=== PATIENT | male | born 1975 | race Caucasian/White ===

== ENCOUNTER → 2022-01-18 | Outpatient (CLI) | payer BC ==
[2022-01-18 11:05] LABS: Basophils # (auto) 0.1 10 ^3/uL (0-0.2); Basophils % (auto) 0.7 % (0.0-2.0); Eosinophils # (auto) 0.1 10 ^3/uL (0-0.8); Eosinophils % (auto) 1.9 % (0.0-7.0); Hematocrit 49.3 % (41.0-53.0); Hemoglobin 16.1 g/dL (13.5-17.5); Lymphocytes # (auto) 1.8 10 ^3/uL (0.4-5.4); Lymphocytes % (auto) 24.3 % (10.0-50.0); Mean Corpuscular Hemoglobin 29.1 pg (28.0-32.0); Mean Corpuscular Hgb Conc. 32.8 g/dL (32.0-36.0); Mean Corpuscular Volume 88.8 fL (80.0-100.0); Monocytes # (auto) 0.5 10 ^3/uL (0-1.3); Monocytes % (auto) 6.8 % (0.0-12.0); Neutrophils # (auto) 4.9 10 ^3/uL (1.6-8.6); Neutrophils % (auto) 66.3 % (37.0-80.0); Nucleated Red Blood Cells % 0.1 %; Red Blood Cells 5.55 10^6/uL (4.5-5.90); Red Cell Distribution Width 14.1 % (11.8-14.3); White Blood Cell 7.4 10^3/uL (4.4-10.8)
[2022-01-18 12:09] LABS: Albumin 3.6 g/dL (3.4-5.0); Calcium 9.2 mg/dL (8.5-10.1); Potassium 4.6 mmol/L (3.5-5.1)
[2022-01-18 12:16] LABS: Bilirubin, Total 0.6 mg/dL (0.2-1.0); Total Protein 7.2 g/dL (6.4-8.2)
== END | disposition home or self-care (01) ==
LOC: LAB 10:36
PROVIDERS: ATTEND Internal Medicine
DX: I10 Essential (primary) hypertension (principal); E03.9 Hypothyroidism, unspecified
CPT/HCPCS: 36415; 80053; 80061; 84443; 85025

== ENCOUNTER 2023-09-23 19:27 | Emergency (ER) | payer BC ==
[~2023-09-23] VITALS: Ht 177.8 cm; Wt 100.0 kg
[2023-09-23 20:15] LABS: Basophils # (auto) 0.1 10 ^3/uL (0-0.2); Eosinophils # (auto) 0.1 10 ^3/uL (0-0.8); Eosinophils % (auto) 0.6 % (0.0-7.0); Hematocrit 47.6 % (41.0-53.0); Hemoglobin 16.3 g/dL (13.5-17.5); Lymphocytes % (auto) 17.9 % (10.0-50.0); Mean Corpuscular Hemoglobin 29.6 pg (28.0-32.0); Mean Corpuscular Hgb Conc. 34.2 g/dL (32.0-36.0); Mean Corpuscular Volume 86.5 fL (80.0-100.0); Monocytes # (auto) 0.8 10 ^3/uL (0-1.3); Monocytes % (auto) 6.9 % (0.0-12.0); Neutrophils # (auto) 8.1 10 ^3/uL (1.6-8.6); Neutrophils % (auto) 73.6 % (37.0-80.0); Nucleated Red Blood Cells % 0.1 %; Red Cell Distribution Width 14.2 % (11.8-14.3)
[2023-09-23 20:29] LABS: Chloride 108 mmol/L (98-107); Potassium 3.9 mmol/L (3.5-5.1); Sodium 141 mmol/L (136-145)
[2023-09-23 20:30] VITALS: PULSE 63; RESP 12; O2SAT 96
[2023-09-23 20:30] LABS: Anion Gap 8 (5-15); Calcium 9.8 mg/dL (8.5-10.1); Carbon Dioxide 25 mmol/L (20-30)
[2023-09-23 20:35] LABS: BUN/Creatinine Ratio 7.1 (10.0-20.0); Blood Urea Nitrogen 8 mg/dL (9-23); Glucose 94 mg/dL (74-106)
[2023-09-23] MEDS: SODIUM CHLORIDE 0.9% 1,000 ML IV ONE (21:15)
[2023-09-23] MEDS: ONDANSETRON HCL 4 MG/2 ML VIAL IV ONE (21:16)
[2023-09-23] MEDS: MECLIZINE HCL 25 MG TAB PO ONE (21:16)
[2023-09-23 22:00] VITALS: BP 123/75; PULSE 68; RESP 12; O2SAT 97
[2023-09-23] MEDS ORDERED: MECL25CH85 PO (22:04)
[2023-09-23] MEDS ORDERED: KETO10TA PO (22:04)
[2023-09-23] MEDS ORDERED: ZOFR4T PO (22:04)
[2023-09-23] MEDS: KETOROLAC TROMETH 30 MG/ML 1ML VIAL IV ONE (22:26)
== END 2023-09-23 23:00 | disposition home or self-care (01) ==
LOC: ER 19:27 → EEVIPCON 19:27 → ER 23:00
DX: R42 Dizziness and giddiness (principal); G43.909 Migraine, unspecified, not intractable, without status migrainosus; I10 Essential (primary) hypertension; I25.2 Old myocardial infarction; F17.210 Nicotine dependence, cigarettes, uncomplicated
CPT/HCPCS: 36415; 70450; 72125; 80048; 85025; 96361; 96374; 96375; 99285; J1885; J2405; J7030; J8597

== ENCOUNTER → 2023-12-26 | Outpatient (CLI) | payer BC ==
[~2023-12-26] MED LIST: KETO10TA PO; MECL25CH85 PO; ZOFR4T PO
[2023-12-26 06:46] LABS: Urine Bacteria FEW /hpf (None Seen); Urine Blood Negative /uL (Negative); Urine Clarity Clear (Clear); Urine Color Yellow (Yellow); Urine Mucus FEW (None Seen); Urine Protein, UAD TRACE (Negative); Urine Specific Gravity 1.034 (1.001-1.035); Urine Urobilinogen Normal (Negative); Urine WBC 2 /hpf (0 - 3); Urine pH 5.5 (5.0-9.0)
[2023-12-26 07:04] LABS: Basophils # (auto) 0.1 10 ^3/uL (0-0.2); Basophils % (auto) 1.1 % (0.0-2.0); Eosinophils # (auto) 0.2 10 ^3/uL (0-0.8); Eosinophils % (auto) 1.9 % (0.0-7.0); Hematocrit 49.2 % (41.0-53.0); Hemoglobin 17.1 g/dL (13.5-17.5); Lymphocytes # (auto) 2.5 10 ^3/uL (0.4-5.4); Mean Corpuscular Hemoglobin 30.2 pg (28.0-32.0); Mean Corpuscular Hgb Conc. 34.8 g/dL (32.0-36.0); Mean Corpuscular Volume 86.9 fL (80.0-100.0); Monocytes # (auto) 0.7 10 ^3/uL (0-1.3); Monocytes % (auto) 7.7 % (0.0-12.0); Neutrophils # (auto) 5.5 10 ^3/uL (1.6-8.6); Neutrophils % (auto) 61.3 % (37.0-80.0); Red Blood Cells 5.66 10^6/uL (4.5-5.90); Red Cell Distribution Width 13.7 % (11.8-14.3)
[2023-12-26 07:34] LABS: Alanine Aminotransferase 19 U/L (7-40); Alkaline Phosphatase 81 U/L (46-116); Anion Gap 9 (5-15); Aspartate Aminotransferase 10 U/L (13-40); BUN/Creatinine Ratio 10.8 (10.0-20.0); Blood Urea Nitrogen 11 mg/dL (9-23); Calcium 9.9 mg/dL (8.7-10.4); Carbon Dioxide 25 mmol/L (20-30); Chloride 109 mmol/L (98-107); Glucose 98 mg/dL (74-106); LDL Cholesterol 153 mg/dL (< 100); Potassium 4.1 mmol/L (3.5-5.1); Sodium 143 mmol/L (136-145); Triglycerides 117 mg/dL (< 150)
[2023-12-26 07:35] LABS: Albumin 4.5 g/dL (3.2-4.8); Bilirubin, Total 0.5 mg/dL (0.2-1.0); Cholesterol 198 mg/dL (< 200); HDL Cholesterol 36 mg/dL (40-59); Total Protein 7.1 g/dL (5.7-8.2)
== END | disposition home or self-care (01) ==
LOC: LAB 06:12
PROVIDERS: ATTEND Internal Medicine
DX: Z00.01 Encounter for general adult medical examination with abnormal findings (principal); I12.9 Hypertensive chronic kidney disease with stage 1 through stage 4 chronic kidney disease, or unspecified chronic kidney disease; N18.2 Chronic kidney disease, stage 2 (mild); E78.2 Mixed hyperlipidemia; D72.829 Elevated white blood cell count, unspecified
CPT/HCPCS: 36415; 80053; 80061; 81001; 83036; 84439; 84443; 85025

== ENCOUNTER 2025-01-01 07:19 | Outpatient (CLI) | payer BC ==
[~2025-01-01 07:19] MED LIST changes: +AUG875T PO; +PRED20TA2 PO; +PSEU120T2 PO
[2025-01-01 08:01] LABS: Hematocrit 49.4 % (41.0-53.0); Hemoglobin 17.4 g/dL (13.5-17.5); Mean Corpuscular Hemoglobin 30.6 pg (28.0-32.0); Mean Corpuscular Volume 87.1 fL (80.0-100.0); Nucleated Red Blood Cells % 0.2 %
[2025-01-01 08:19] LABS: Alanine Aminotransferase 23 U/L (7-40); Albumin 4.6 g/dL (3.2-4.8); Alkaline Phosphatase 69 U/L (46-116); Anion Gap 10 (5-15); BUN/Creatinine Ratio 13.1 (10.0-20.0); Bilirubin, Total 0.9 mg/dL (0.2-1.0); Blood Urea Nitrogen 14 mg/dL (9-23); Calcium 9.4 mg/dL (8.7-10.4); Carbon Dioxide 25 mmol/L (20-31); Chloride 107 mmol/L (98-107); Glucose 103 mg/dL (74-106); Potassium 4.0 mmol/L (3.5-5.1); Sodium 142 mmol/L (136-145); Total Protein 6.9 g/dL (5.7-8.2)
[2025-01-01 08:21] LABS: Cholesterol 216 mg/dL (< 200); HDL Cholesterol 40 mg/dL (40-59); Triglycerides 179 mg/dL (< 150)
[2025-01-01 08:30] LABS: Urine Protein, UAD Negative (Negative)
== END 2025-01-01 17:00 | disposition home or self-care (01) ==
LOC: LAB 07:19
PROVIDERS: ATTEND Internal Medicine
DX: Z00.01 Encounter for general adult medical examination with abnormal findings (principal)
CPT/HCPCS: 36415; 80053; 80061; 81001; 84439; 84443; 85025

== ENCOUNTER 2025-01-25 01:47 | Emergency (ER) | payer BC ==
[~2025-01-25] VITALS: Ht 177.8 cm; Wt 100.0 kg
--- NOTE | 2025-01-25 02:13 | ED.PDOC ---
Back pain HPI HPI Comments 49-YEAR-OLD MALE PRESENTS TO ED FOR CC OF LOWER BACK PAIN. 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 REPORTS HX OF PRIOR BACK SX. PATIENT REPORTS SUDDEN ONSET OF SHARP SHOOTING PAIN FROM MEMBER BACK DOWN BOTH LEGS RATES PAIN 10/10 ON PAIN SCALE. DENIES NUMBNESS, WEAKNESS, LOSS OF BOWEL BLADDER CONTROL, OR SADDLE ANESTHESIA. Chief Complaint: Back Pain Time Seen by MD: 01:51 Primary Care Provider: UNK Reviewed Notes: Nurses Notes, Medications, Allergies Allergies: Coded Allergies: Tramadol (Verified Allergy, Unknown, 12/19/17) Home Meds Active Scripts Tizanidine Hydrochloride (Tizanidine Hydrochloride) 4 Mg Tab, 4 MG PO TID PRN for 10 Days, #30 TAB Prov:JASON ALVAP 01/25/25 Pseudoephedrine (Sudafed 12 Hour) 120 Mg Tab, 1 TAB PO BID, #20 TAB Prov:ROBBIN MCBRIDE 11/07/24 Prednisone (Prednisone) 20 Mg Tab, 20 MG PO DAILY for 5 Days, #5 MG Prov:ROBBIN MCBRIDEP 11/07/24 Amoxicillin & Pot Clavulanate (AUGMENTIN TABLET) 875 Mg Tb, 875 MG PO BID for 7 Days, #14 TAB Prov:ROBBIN MCBRIDE 11/07/24 Meclizine HCl (Antivert) 25 Mg Chw, 50 MG PO Q8HP PRN, #30 TAB.CHEW Prov:CARLA CHAVEZ MD 09/23/23 Ondansetron Odt 4MG Tab (ZOFRAN PO) 4 Mg Tb, 4 MG PO TIDPRN PRN, #15 TAB ODT TAB-DISSOLVE IN MOUTH, THEN SWALLOW Prov:CARLA CHAVEZ MD 09/23/23 Ketorolac Tromethamine (Ketorolac Tromethamine) 10 Mg Tab, 1 TAB PO Q6HPRN PRN, #20 TAB Prov:CARLA CHAVEZ MD 09/23/23 Information Source: Patient Mode of Arrival: Ambulatory Past Medical History PAST MEDICAL HISTORY: HTN, SD Surgical History: Denies all surgeries Family History Family History: Reviewed,noncontributory to illness, Unknown Social History Smoker: Cigarettes Alcohol: Denies ETOH Use Drugs: Denies Drug Use Lives In: Home All Other Systems: Reviewed and Negative (SEE HPI) Physical Exam General Appearance: No Apparent Distress, Normal HEENT: Pharynx Normal Neck: Full Range of Motion, Non-Tender Respiratory: Lungs Clear, No Respiratory Distress, Normal Breath Sounds Cardiovascular: No Murmur, Normal Peripheral Pulses, Regular Rate/Rhythm Breast Exam: Deferred Gastrointestinal: Non Tender, Soft Genitalia: Deferred Pelvic: Deferred Rectal: Deferred Extremities: Normal capillary refill, Normal range of motion, No pedal edema Musculoskeletal : Location: Bilateral Extremity Location: Back (MODERATE TO SEVERE TENDERNESS PALPATED OVER L1 THROUGH L5 SPINE. NO NOTED CREPITUS OR STEP-OFFS. TRACE ECCHYMOSIS WITHOUT OPEN LESIONS OR LACERATION. STRENGTH SENSORY MOTION INTACT POSITIVE PEDAL PULSES BILATERAL) Apperance: Normal Neurologic: Alert, No Motor Deficits, Normal Affect, Normal Mood, No Sensory Deficits Cerebellar Function: Normal Reflexes: Normal Skin: Dry, Normal Color, Warm Lymphatic: No Adenopathy Was a procedure done? Was a procedure done?: No Back Pain Differential Dx Differential Diagnosis: Fracture, Musculoskeletal Pain X-Ray, Labs, Meds, VS Vital Signs Date Time Temp Pulse Resp B/P (MAP) Pulse Ox O2 Delivery O2 Flow Rate FiO2 01/25/25 01:50 97.8 68 17 165/113 95 97.8 Current Medications Medications (Trade) Dose Ordered Sig/Edie Route Start Time Stop Time Status Last Admin Ketorolac Tromethamine (Toradol Injection) 60 mg ONCE ONCE IM 01/25/25 02:00 01/25/25 02:01 DC 01/25/25 03:06 Oxycodone/ Acetaminophen (Percocet 5/ 325MG Tablet) 2 tab ONCE ONCE PO 01/25/25 02:00 01/25/25 02:01 DC 01/25/25 03:06 X-Ray, Labs, Meds, VS Comment Lumbar spine x-ray shows no acute fractures, osseous lesions, subluxations notes hardware is intact. Likely lumbar strain and contusion. Patient was given Toradol 60 mg IM and Percocet 10 mg p.o. reports improvement in pain and function requesting discharge at this time. Advised patient to rest alternate between ice and heat script trial of muscle relaxer. Advised to take medication as prescribed side effects discussed. Advised to follow up with his PCP as needed consider further imaging such as MRI or physical therapy if symptoms persist. ER return precautions given patient indicates understanding and agrees with discharge plan of care. Time of 1ST Reevaluation: 02:13 Reevaluation 1ST: Unchanged Time of 2ND Reevaluation: 03:02 Reevaluation 2ND: Improved Patient Education/Counseling: Diagnosis, Treatment, Prognosis, Need For Follow Up Family Education/Counseling: No Family Present SEPSIS Sepsis Screen Date sepsis recognized/suspect: Jan 25, 2025 Time Sepsis recognized/suspect: 0150 Recent Procedure: No On Antibiotic Therapy: No Respiratory Rate >20: No Heart Rate >90: No Temp<36 C (96.8 F) or >38.3 C: No SBP <90 or MAP <65 mmHG: No New Acute Mental Status Change: No Is the patient on CPAP, BIPAP,: No Physician Orders Lumbar Spine 3 View (01/25/25 01:55) Vital Signs Date Time Temp Pulse Resp B/P (MAP) Pulse Ox O2 Delivery O2 Flow Rate FiO2 01/25/25 01:50 97.8 68 17 165/113 95 97.8 Medications Medications Dose Ordered Sig/Edie Route Start Time Stop Time Status Last Admin Dose Admin Ketorolac Tromethamine 60 mg ONCE ONCE IM 01/25/25 02:00 01/25/25 02:01 DC 01/25/25 03:06 Oxycodone/ Acetaminophen 2 tab ONCE ONCE PO 01/25/25 02:00 01/25/25 02:01 DC 01/25/25 03:06 Departure 1 Departure Time of Disposition: 02:55 Impression: Primary Impression: Lumbar sprain Qualified Codes: S33.5XXA - Sprain of ligaments of lumbar spine, initial encounter Additional Impression: Contusion of lower back Qualified Codes: S30.0XXA - Contusion of lower back and pelvis, initial encounter Disposition: 01 HOME / SELF CARE / HOMELESS Condition: Stable e-Prescriptions Tizanidine Hydrochloride (Tizanidine Hydrochloride) 4 Mg Tab 4 MG PO TID PRN for 10 Days, #30 TAB Prov: JASON ALVA 01/25/25 Discharged With: Self Critical Care Note Critical Care Time?: No Stability Stability form required: JASON Norton Jan 25, 2025 02:13
[2025-01-25 02:20] VITALS: BP 165/113; PULSE 68; RESP 17; TEMP 97.8; O2SAT 95
--- NOTE | 2025-01-25 02:35 | DVH ---
INDICATION: S/P INJURY/PAIN TECHNIQUE: 2 views of the lumbar spine were obtained. COMPARISON: None FINDINGS: No evidence of acute vertebral fracture or compression deformity. Disc spacer with intervertebral fi xation at L5-S1 without evidence of hardware complication. Minimal spondylotic changes of the nonsurg ical levels. Right upper quadrant surgical clips. Unremarkable imaged osseous pelvis. IMPRESSION: 1. No acute finding of the lumbar spine.
[2025-01-25] MEDS ORDERED: TIZA10TA PO (03:02)
[2025-01-25] MEDS: KETOROLAC TROMETH 60MG/2ML VIAL IM ONE (03:06)
[2025-01-25] MEDS: OXYCODONE W/ ACETAMINOPHEN 5/325MG TABLET PO ONE (03:06)
== END 2025-01-25 03:50 | disposition home or self-care (01) ==
LOC: ER 01:49 → EEVIPCON 01:49 → ER 03:09
DX: S33.5XXA Sprain of ligaments of lumbar spine, initial encounter (principal); S30.0XXA Contusion of lower back and pelvis, initial encounter; I10 Essential (primary) hypertension; F17.210 Nicotine dependence, cigarettes, uncomplicated; Z88.5 Allergy status to narcotic agent; W22.09XA Striking against other stationary object, initial encounter; Y93.89 Activity, other specified; Y92.89 Other specified places as the place of occurrence of the external cause; Y99.9 Unspecified external cause status
CPT/HCPCS: 72100; 96372; 99283; J1885